=== PATIENT | female | born 2000 | race Caucasian/White ===

== ENCOUNTER 2020-11-12 16:18 | Emergency (ER) | payer OTHER ==
[2020-11-12 17:10] LABS: BASOPHIL 0.5 % (0-2); EOSINOPHIL 0.7 % (0-5); HCT 43.3 % (37.0-47.0); HGB 14.4 g/dl (12.5-16.0); MCH 29.2 pg (25.0-31.0); MCHC 33.3 g/dL (32.0-36.0); MCV 87.8 fL (78.0-100.0); MPV 10.3 fL (6.0-9.5); NEUTROPHIL 70.6 % (41-80); NRBC 0; PLT 361 K/uL (150-400); RBC 4.93 M/uL (4.20-5.40); RDW 12.7 % (11.5-14.0); WBC 8.4 K/uL (4.0-10.5)
[2020-11-12 17:20] LABS: BUN/CREAT RATIO (CALC) 20.5 RATIO; CREATININE 0.73 mg/dL (0.51-0.95); POTASSIUM 4.1 mmol/L (3.5-5.1)
[2020-11-12 17:52] LABS: BILIRUBIN NEGATIVE (NEGATIVE); BLOOD TRACE-INTACT Ery/uL (NEGATIVE); CLARITY CLEAR (CLEAR); COLOR YELLOW (YELLOW); GLUCOSE (U) NORMAL (NORMAL); LEUKOCYTES NEGATIVE Leu/uL (NEGATIVE); NITRITE NEGATIVE (NEGATIVE); PROTEIN NEGATIVE (NEGATIVE); SPECIFIC GRAVITY >=1.030 (1.001-1.030); UROBILINOGEN 0.2 mg/dL (0.2-1.0)
[2020-11-12 18:05] LABS: BACTERIA TRACE
[2020-11-12 18:51] LABS: CORONAVIRUS 2019 SARS-COV-2 NEGATIVE (NEGATIVE); INFLUENZA A NAA NEGATIVE (NEGATIVE)
[2020-11-12] MEDS ORDERED: METRONIDAZOLE500 MG PO (19:13)
[2020-11-12] MEDS ORDERED: BENTYL10 MG PO (19:13)
[2020-11-12] MEDS ORDERED: CIPRO500 MG PO (19:13)
== END 2020-11-12 19:35 | disposition home or self-care (01) ==
LOC: FER 16:18
PROVIDERS: Nurse Practitioner Family
DX: K52.9 Noninfective gastroenteritis and colitis, unspecified (principal); Z90.49 Acquired absence of other specified parts of digestive tract; Z20.822 Contact with and (suspected) exposure to COVID-19
CPT/HCPCS: 36415; 80048; 81001; 85025; J2405; J7030; Q9967; U0002

== ENCOUNTER 2021-10-22 08:16 | Inpatient (IN) | payer OTHER ==
[~2021-10-22] VITALS: Ht 154.9 cm; Wt 106.6 kg
[~2021-10-22 08:16] MED LIST: BENTYL10 MG PO; CIPRO500 MG PO; METRONIDAZOLE500 MG PO
[2021-10-22 10:24] LABS: HCT 36.5 % (37.0-47.0); HGB 12.4 g/dl (12.5-16.0); MCH 28.1 pg (25.0-31.0); MCV 82.8 fL (78.0-100.0); MPV 10.7 fL (6.0-9.5); RBC 4.41 M/uL (4.20-5.40); RDW 12.9 % (11.5-14.0); WBC 6.3 K/uL (4.0-10.5)
[2021-10-22 10:34] LABS: BILIRUBIN NEGATIVE (NEGATIVE); BLOOD NEGATIVE Ery/uL (NEGATIVE); CLARITY HAZY (CLEAR); COLOR YELLOW (YELLOW); GLUCOSE (U) NORMAL (NORMAL); LEUKOCYTES 1+ Leu/uL (NEGATIVE); NITRITE NEGATIVE (NEGATIVE); PROTEIN NEGATIVE (NEGATIVE); UROBILINOGEN 0.2 mg/dL (0.2-1.0); pH 6.5 (5.0-9.0)
[2021-10-22 10:54] LABS: ALBUMIN 2.2 g/dL (3.4-5.0); BILIRUBIN - TOTAL 0.4 mg/dL (0.2-1.0); BUN/CREAT RATIO (CALC) 18.3 RATIO; CREATININE 0.6 mg/dL (0.51-0.95); GLOBULIN (CALCULATION) 4.2 g/dL; POTASSIUM 3.7 mmol/L (3.5-5.1); TOTAL PROTEIN 6.4 g/dL (6.4-8.2)
[2021-10-22 10:57] LABS: SQUAMOUS EPITHELIAL CELLS 20-50
[2021-10-22 10:58] LABS: BACTERIA 2+; URINARY RBC RARE; URINARY WBC 20-50; YEAST PRESENT
[2021-10-22 10:59] LABS: AMORPHOUS PHOSPHATE CRYSTALS TRACE
[2021-10-24 07:03] LABS: HCT 32.8 % (37.0-47.0); MCH 28.1 pg (25.0-31.0); MCHC 33.5 g/dL (32.0-36.0); MCV 83.7 fL (78.0-100.0); MPV 10.6 fL (6.0-9.5); RBC 3.92 M/uL (4.20-5.40); WBC 7.1 K/uL (4.0-10.5)
[2021-10-25] MEDS ORDERED: PRENATAL FORMU1 EACH PO (15:00)
[2021-10-25] MEDS ORDERED: COLACE100 MG PO (15:00)
[2021-10-25] MEDS ORDERED: KETOROLAC TROME10 MG PO (15:00)
== END 2021-10-25 16:54 | disposition home or self-care (01) | DRG 786 ==
LOC: FIS 08:16 → FOB 08:16 → FIS 09:15 → FOB 09:16
PROVIDERS: ADMIT Specialist
PROC: 10D00Z1 Extraction of Products of Conception, Low, Open Approach (ICD-10-PCS; principal; 2021-10-24)
DX: O62.1 Secondary uterine inertia (principal); U07.1 COVID-19; O98.52 Other viral diseases complicating childbirth; Z37.0 Single live birth; Z3A.39 39 weeks gestation of pregnancy; O36.63X0 Maternal care for excessive fetal growth, third trimester, not applicable or unspecified; O99.214 Obesity complicating childbirth; E66.01 Morbid (severe) obesity due to excess calories; O99.52 Diseases of the respiratory system complicating childbirth; J45.909 Unspecified asthma, uncomplicated
CPT/HCPCS: 36415; 80053; 81001; 82009; 82947; 82962; 86850; 86900; 86901; 87088; J0456; J0690; J1200; J1885; J2274; J2370; J2405; J2590; J7050; J7120; J7121; U0002